=== PATIENT | male | born 1980 | race Caucasian/White ===

== ENCOUNTER 2020-03-19 14:21 | Emergency (ER) | payer OTHER ==
[~2020-03-19] VITALS: Ht 177.8 cm; Wt 80.0 kg
[2020-03-19 15:10] LABS: URINE BILIRUBIN - DIPSTICK NEGATIVE (NEGATIVE); URINE BLOOD DIPSTICK LARGE (NEGATIVE); URINE COLOR YELLOW; URINE GLUCOSE - DIPSTICK NEGATIVE (NEGATIVE); URINE KETONE NEGATIVE (NEGATIVE); URINE LEUK ESTERASE NEGATIVE (NEGATIVE); URINE NITRITE - DIPSTICK NEGATIVE (Negative); URINE PROTEIN - DIPSTICK 100 mg/dL (NEG-TRACE); URINE SPECIFIC GRAVITY >=1.030; URINE UROBILINOGEN - DIPSTICK 0.2 E.U./dL (0.2)
[2020-03-19 15:11] LABS: HEMATOCRIT 45.8 % (39.0-50.0); IMMATURE GRANULOCYTES 0.5 % (0.0-5.0); MEAN CELL VOLUME 98.3 fL CALC (80.0-100.0); MEAN CORPUSCULAR HGB 32.2 pG CALC (26.0-32.0); MEAN CORPUSCULAR HGB CONC 32.8 g/dL CAL (32.0-36.0); NEUT# 12.08 thou/uL (1.82-7.42); RED BLOOD COUNT 4.66 mill/uL (4.70-6.10); RED CELL DISTRI WIDTH 12.5 % (11.5-15.5)
[2020-03-19 15:19] LABS: ALBUMIN 5.5 g/dL (3.2-5.0); ALKALINE PHOSPHATASE 62 u/l (38-126); ANION GAP 35 (6-22 (CALC)); BILIRUBIN, TOTAL 1.3 mg/dL (0.0-1.4); BUN 21 mg/dL (9-20); BUN/CREATININE RATIO 13 (12-20 (CALC)); CARBON DIOXIDE 10 mmol/l (22-30); CHLORIDE 102 mmol/l (95-108); CPK 1125 u/l (52-200); CREATININE 1.6 mg/dL (0.7-1.3); ETHYL ALCOHOL 0 mg/dl (0-30); GFR 49 ML/MIN (>=60 (CALC)); GFR FOR AFR.AMER. 59 ML/MIN (>=60 (CALC)); POTASSIUM 3.7 mmol/l (3.5-5.1); SGOT/AST 56 u/l (17-59); SODIUM 143 mmol/l (137-146); TOTAL PROTEIN 8.5 g/dL (6.3-8.2)
[2020-03-19 15:20] LABS: URINE AMORPH SEDIMENT MANY hpf (NONE-FER)
[2020-03-19 15:27] LABS: PROTHROMBIN TIME 10.2 SECONDS (9.0-12.5)
[2020-03-19 17:08] VITALS: BP 136/77
== END 2020-03-19 17:55 | DRG 605 ==
LOC: ED 14:21
PROVIDERS: Student in an Organized Health Care Education/Training Program
DX: S00.81XA Abrasion of other part of head, initial encounter (principal); N17.9 Acute kidney failure, unspecified; M62.82 Rhabdomyolysis; R41.82 Altered mental status, unspecified; R56.9 Unspecified convulsions; S80.812A Abrasion, left lower leg, initial encounter; S80.811A Abrasion, right lower leg, initial encounter; S40.212A Abrasion of left shoulder, initial encounter; Y35.833A Legal intervention involving a conducted energy device, suspect injured, initial encounter; Z20.828 Contact with and (suspected) exposure to other viral communicable diseases